=== PATIENT | female | born 1990 | race Caucasian/White ===

== ENCOUNTER 2019-04-09 23:19 | Emergency (ER) | payer OTHER ==
[2019-04-09 23:30] VITALS: BP 111/84; PULSE 75; TEMP 98.1; BMI 22.8
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
== END 2019-04-09 23:52 | disposition home or self-care (01) ==
LOC: FER 23:19
DX: S41.111A Laceration without foreign body of right upper arm, initial encounter (principal); V18.0XXA Pedal cycle driver injured in noncollision transport accident in nontraffic accident, initial encounter; Y93.89 Activity, other specified; Y92.89 Other specified places as the place of occurrence of the external cause; Z88.8 Allergy status to other drugs, medicaments and biological substances
CPT/HCPCS: 99282-25